=== PATIENT | female | born 1960 | race Caucasian/White ===

== ENCOUNTER → 2016-12-25 | Outpatient (CLI) | payer OTHER ==
--- NOTE | 2016-12-25 11:01 | KCIC ---
PROCEDURE Bilateral digital screening mammogram. HISTORY 56-year-old female presents for screening mammography. TECHNIQUE Full field digital craniocaudal and mediolateral oblique views of both breasts were obtained. Computer-aided detection is applied. COMPARISON 12/12/2015 FINDINGS Breast parenchymal composition: Level C - Heterogeneously dense. There is no new suspicious mass, calcification or architectural distortion within either breast. IMPRESSION BI-RADS Category 2: Benign findings. Annual mammography is recommended. This study was interpreted with the benefit of Computerized Aided Detection (CAD). Mammography is not 100% sensitive in detecting breast cancer. Therefore, a self breast exam and a clinical breast exam are very important. A negative mammogram does not negate a clinically suspicious finding and should not result in a delay in biopsying a clinically suspicious abnormality. The patient information was entered into a reminder system with a target date for her next mammogram in year. Electronically signed by: Peyton Harper (December 25, 2016 11:00:07)
== END | disposition home or self-care (01) ==
LOC: KCIC MAMMO 10:14
PROVIDERS: ATTEND Obstetrics & Gynecology
DX: Z12.31 Encounter for screening mammogram for malignant neoplasm of breast (principal)
CPT/HCPCS: G0202; 77067

== ENCOUNTER → 2018-01-06 | Outpatient (CLI) | payer OTHER | END | disposition home or self-care (01) | LOC: KCIC MAMMO 11:28 | DX: Z12.31 Encounter for screening mammogram for malignant neoplasm of breast (principal) | CPT/HCPCS: 77067 ==

== ENCOUNTER → 2019-01-07 | Outpatient (CLI) | payer OTHER ==
--- NOTE | 2019-01-07 14:46 | KCIC ---
EXAM: Bilateral digital screening mammogram with tomosynthesis. HISTORY: 58-year-old female presents for screening mammography. TECHNIQUE: Full-field digital craniocaudal and mediolateral oblique 2D and 3D tomosynthesis images of both breasts are obtained for evaluation. Computer aided detection with [employer] software version 9.3 was applied. COMPARISON: 01/06/2018 BREAST PARENCHYMAL DENSITY: Level C - Heterogeneously dense. FINDINGS: There is a circumscribed nodular density within the 6:00 position of the right breast at mid depth which may be more conspicuous compared to the prior study due to differences in imaging technique. There is a smaller nodular density within the medial right breast best seen in the craniocaudal projection. This demonstrates no clear correlate on the prior study. There are few benign calcifications. There is no architectural distortion. IMPRESSION: BI-RADS Category 0: Additional imaging needed. RECOMMENDATION: Further evaluation with a right breast sonogram targeted to the 6:00 position at mid depth and slightly medial aspect of the right breast at mid depth is recommended to assess areas of nodularity described above. If your mammogram demonstrates that you have dense breast tissue, which could hide abnormalities, and if you have other risk factors for breast cancer that have been identified, you might benefit from supplemental screening tests that may be suggested by your ordering physician. Dense breast tissue, in and of itself, is a relatively common condition. This information is not provided to cause undue concern, but rather to raise your awareness and to promote discussion with your physician regarding the presence of other risk factors, in addition to dense breast tissue. A report of your mammography results will be sent to you and your physician. You should contact your physician if you have any questions or concerns regarding this report. Mammography is a sensitive method for finding small breast cancers, but it does not detect them all and is not a substitute for careful clinical examination. A negative mammogram does not negate a clinically suspicious finding and should not result in delay in biopsying a clinically suspicious abnormality. PQRS compliance statement - Patient information was entered into a reminder system with a target due date for the next mammogram. "Our facility is accredited by the [employer] Mammography [employer]." Electronically signed by: Peyton Harper MD (01/07/2019 2:44 PM) [id number]
== END | disposition home or self-care (01) ==
LOC: KCIC MAMMO 11:09
PROVIDERS: ATTEND Obstetrics & Gynecology
DX: Z12.31 Encounter for screening mammogram for malignant neoplasm of breast (principal); N64.89 Other specified disorders of breast
CPT/HCPCS: 77063; 77067

== ENCOUNTER → 2019-01-16 | Outpatient (CLI) | payer OTHER ==
--- NOTE | 2019-01-16 14:00 | KCIC ---
Right breast ultrasound: Reason for examination: Nodular density on screening mammogram. Comparison is made to mammographic exam dated 01/07/2019. Ultrasound examination was performed of the right breast in the area of mammographic concern and at the right axilla. In the 7:00 position 4 cm from the nipple and appearing to correlate with the area of mammographic concern, there is a 1 cm hypoechoic circumscribed lesion with some mobile debris present. This has a benign appearance and probably represents a fibrocystic lesion. Recommend close follow-up with reevaluation in 3 months. No other cystic or solid lesions are seen. No abnormal appearing lymph nodes are seen in the axilla. IMPRESSION: 1 cm hypoechoic fibrocystic type lesion at the 7:00 position appears to correlate with the area of mammographic concern. This is probably benign but recommend reevaluation with right breast ultrasound in 3 months. BI-RADS Category 3: Probably Benign. "Our facility is accredited by the [employer] Mammography Program." This patient's information has been entered into a reminder system for the patient to be notified with the results of her examination and a target date for the next mammogram. Electronically signed by: Shelly Corbett MD (01/16/2019 1:57 PM) [id number]
== END | disposition home or self-care (01) ==
LOC: KCIC US 13:04
PROVIDERS: ATTEND Obstetrics & Gynecology
DX: N64.89 Other specified disorders of breast (principal)
CPT/HCPCS: 76641

== ENCOUNTER → 2019-04-20 | Outpatient (CLI) | payer OTHER ==
--- NOTE | 2019-04-20 11:00 | KCIC ---
Right breast ultrasound COMPARISON: Right breast ultrasound the 2018, mammogram January 07, 2019 and prior mammograms. HISTORY: Right lower breast probably benign type cystic lesion. Fines: Right breast 7:00 position 4 cm from the nipple again demonstrates the parallel circumscribed nonshadowing complicated cystic lesion which has mildly decreased in size currently measuring 8 x 3 x 6 mm, previously measured 9 x 6 x 10 mm. There is likely less fluid distention of the lesion which results in increased echogenicity from collapsing clusters of cysts, accounting for the decreasing size but increased echogenicity. Imaging features are probably benign typical of a slowly regressing fibrocystic lesion. IMPRESSION: Mild reduction in size of the probably benign fibrocystic lesion of the right lower breast. Attention on follow-up right breast sonography in 9 months is advised, which will be due at the time of the patient's date for annual screening mammography. BI-RADS Category 3: Probably benign Electronically signed by: Tomas Erazo MD (04/20/2019 10:57 AM) [id number]
== END | disposition home or self-care (01) ==
LOC: KCIC US 10:18
PROVIDERS: ATTEND Obstetrics & Gynecology
DX: N60.01 Solitary cyst of right breast (principal); N83.10 Corpus luteum cyst of ovary, unspecified side
CPT/HCPCS: 76641

== ENCOUNTER → 2021-05-31 | Outpatient (CLI) | payer OTHER ==
--- NOTE | 2021-05-31 09:41 | RAD ---
EXAM: Abdomen sonogram. HISTORY: Elevated liver enzyme laboratory values. TECHNIQUE: Sonographic imaging of the abdomen was performed. COMPARISON: None. FINDINGS: The liver is normal in size. No focal hepatic lesion is seen. The common bile duct is rubén l in caliber for patient age. There is gallbladder sludge. There is no evidence of cholelithiasis or cholecystitis. The kidneys, spleen, pancreas, aorta and inferior vena cava are unremarkable. IMPRESSION: 1. Gallbladder sludge. 2. No acute sonographic finding. Electronically signed by: Peyton Harper MD (05/31/2021 9:39 AM) [id number]
== END ==
LOC: US 08:07
PROVIDERS: ATTEND Nurse Practitioner Family
DX: R74.8 Abnormal levels of other serum enzymes (principal)
CPT/HCPCS: 76700

== ENCOUNTER → 2021-12-19 | Outpatient (CLI) | payer OTHER ==
--- NOTE | 2021-12-20 09:11 | RAD ---
US FNA BIOPSY 1ST LESION History:Reason: / Spl. Instructions: / History: Thyroid nodule Comparison: November 06, 2021 Procedure: The risks, alternatives, and benefits of the procedure are discussed with the patient. Written inform ed consent is obtained. A time out procedure is performed. Neck prepped and draped in normal sterile fashion. 1% lidocaine was injected into the skin and soft tissue along route to the nodule of the thyroid. 4 s eparate passes were made with a 22-gauge needle. To and fro movement of the needle was performed in t he nodule. Hemostasis is achieved. The patient tolerated the procedure well. Small postbiopsy hemorrh age. IMPRESSION: 1. Ultrasound guided fine needle aspiration of a right thyroid nodule. Electronically signed by: Sergio Alcazar DO (12/20/2021 9:08 AM) [id number]
--- NOTE | 2021-12-29 16:13 | PATHOLOGY ---
Note [facility] Accession Number: [id number] TESTS RESULT FLAG UNITS REF RANGE LAB Clinician Provided Cytology Information No. of containers..01 Other (Miscellaneous) Source: RT INFERIOR THYROID DIAGNOSIS: RT INFERIOR THYROID NEGATIVE FOR MALIGNANT CELLS. CLUSTERS OF BENIGN FOLLICULAR EPITHELIAL CELLS, FEW HEMOSIDERIN-LADEN MACROPHAGES, AND COLLOID PRESENT. THE FINDINGS ARE COMPATIBLE WITH A BENIGN FOLLICULAR NODULE. Signed out by: 02 Rohan Baptiste MD, Pathologist NPI- [id number] Performed by: Annie Vieyra, Batterboard Setter ([facility]) Gross description: 01 30ML, PINK, CLEAR /LCS 12/20/2021 1820 Local FLAG LEGEND: L-Low Normal,H-High Normal,LL-Alert Low,HH-Alert High <-Panic Low,>-Panic High,A-Abnormal,AA-Critical Abnormal Performed at: 01 [address] [address] [place] [address] Gil Matias MD, [address] [facility] [address] [place] [address] Rohan Baptiste MD, Specimen Comment: A courtesy copy of this report has been sent to [phone], [phone]- Specimen Comment: [id number], Specimen Comment: Report sent to , DR HURD / DR KHAN Performed at: 01 [facility] [address], [place], [place] [id number] MD Gil Matias MD Phone: [phone]
== END | disposition home or self-care (01) ==
LOC: US 12:21
PROVIDERS: ATTEND Surgery
DX: E04.1 Nontoxic single thyroid nodule (principal)
CPT/HCPCS: 10005; C1819